=== PATIENT | female | born 1985 | race Asian ===

== ENCOUNTER → 2017-05-09 | Outpatient (CLI) | payer OTHER | LOC: COL.RAD 09:42 | DX: N91.2 Amenorrhea, unspecified (principal); R14.0 Abdominal distension (gaseous) ==

== ENCOUNTER 2023-08-21 10:00 | Outpatient (RCR) | payer BC ==
[2023-08-09 15:02] VITALS: BP 147/80; PULSE 112; TEMP 98
[2023-08-11 09:04] VITALS: BP 134/79; PULSE 108; TEMP 98.5
--- NOTE | 2023-08-11 09:42 | NUR ---
OB nurse in room to obtain FHT. Pt tolerated infusion without issue. IV DC'd, site wrapped with coban.
[2023-08-15 14:37] VITALS: BP 130/75; PULSE 110; TEMP 98.1
[2023-08-17 15:35] VITALS: BP 115/68; PULSE 113; TEMP 98
--- NOTE | 2023-08-17 16:07 | NUR ---
Pt tolerated venofer without issue. IV DC'd, site wrapped with coban. OB has been in and out of room to monitor monitor machine. Pt will discharge once they are completed.
[~2023-08-21] VITALS: Ht 157.5 cm; Wt 71.8 kg
[~2023-08-21 10:00] MED LIST: ASPIRIN 81M81 MG/TA2 PO; FORT1000TA PO; Iron Sucrose 200 MG in NS 100 ML Over 15 minutes IV ONE; NOVOLIN N100 U/ML SQ; NOVOLOG 100U100 U/M1 SQ; PRENATAL TABLET PO
[2023-08-21 10:18] VITALS: BP 118/72; PULSE 114; TEMP 98.3
[2023-08-21] MEDS ORDERED: Iron Sucrose 200 MG in NS 100 ML Over 15 minutes IV ONE (10:30)
== END 2023-08-21 10:56 | disposition home or self-care (01) ==
LOC: EUO 10:00
DX: D50.9 Iron deficiency anemia, unspecified (principal)
CPT/HCPCS: J1756

== ENCOUNTER 2023-10-09 11:16 | Inpatient (IN) | payer BC ==
[~2023-10-09] VITALS: Ht 157.5 cm; Wt 79.1 kg
[2023-10-09] VITALS (34 sets, daily range): BP systolic 128–186; BP diastolic 67–100; PULSE 94–117; TEMP 97.7–98.5
[~2023-10-09 11:16] MED LIST changes: -Iron Sucrose 200 MG in NS 100 ML Over 15 minutes IV ONE
--- NOTE | 2023-10-09 11:30 | NUR ---
PT AMBULATORY TO UNIT, SENT FROM OFFICE FOR BP CHECK AND LABS. PT CHANGED INTO GOWN, COMFORTABLE IN BED. REPORTS NO CTX, NO LOF, POSITIVE MOVEMENT.
[2023-10-09 12:36] LABS: PH 7.5 (5.0-8.5); URINE APPEARANCE CLEAR (CLEAR/HAZY); URINE BLOOD NEGATIVE (NEGATIVE); URINE COLOR YELLOW (YELLOW); URINE GLUCOSE NEGATIVE (NEGATIVE); URINE KETONE NEGATIVE (NEGATIVE); URINE NITRATE NEGATIVE (NEGATIVE); URINE PROTEIN(semi-quant) 2+ (NEGATIVE)
[2023-10-09 12:51] LABS: ALBUMIN 2.2 gm/dL (3.5-5.0); BILIRUBIN,TOTAL 0.4 mg/dL (0.2-1.2); CALCIUM 10.1 mg/dL (8.4-10.2); CREATININE, serum 0.6 mg/dL (0.57-1.11); TOTAL PROTEIN 6.3 gm/dL (6.2-8.1)
--- NOTE | 2023-10-09 13:00 | NUR ---
ROLES IN ROOM FOR SVE, PT UNABLE TO TOLERATE SVE. ULTRASOUND SHOWS HEAD DOWN. DICUSSED POC, PT AGREES TO CYTOTEC.
[2023-10-09 13:29] LABS: ANISOCYTOSIS 2+; BAND 1 % (0-10); HYPOCHROMIA 3+; LYMPHOCYTE 15 % (20.0-51.0); NEUTROPHILS 72 % (42.0-75.2); PLATELET ESTIMATE NORMAL (NORMAL)
[2023-10-09 13:32] LABS: HEMATOCRIT 35.7 % (37.0-47.0); MEAN CELL VOLUME 91 fl (80.0-100.0); MEAN CORPUSCULAR HEMOGLOBIN 28 pg (27-31); MEAN CORPUSCULAR HGB CONC 31 g/dl (33.0-37.0); MEAN PLATELET VOLUME 10.9 fl (7.4-10.4); PLATELET COUNT 255 K/mm3 (130-400); RED BLOOD COUNT 3.91 M/mm3 (4.10-5.30)
[2023-10-09] MEDS ORDERED: LR & Oxytocin 500 ML IV SCH (13:45)
[2023-10-09] MEDS ORDERED: Terbutaline 1 MG/ML 1 ML AMP SQ PRN (13:45)
[2023-10-09] MEDS ORDERED: NS 1,000 ML IV SCH (13:45)
[2023-10-09] MEDS ORDERED: Insulin Lispro (HumaLOG) SQ SCH ×2 (13:45→19:30)
[2023-10-09] MEDS ORDERED: miSOPROStol 25 MCG (1/4th of 100 MCG) TAB PO SCH (13:45)
[2023-10-09] MEDS ORDERED: Glucagon 1 MG VIAL IM PRN (14:00)
[2023-10-09] MEDS ORDERED: Dextrose 50% Water 25 GM/50 ML SYRINGE IV PRN (14:00)
[2023-10-09] MEDS ORDERED: Dextrose (Glucose) 15 GM (4 x 3.75 GM) Chewable TABLET PACK PO PRN (14:00)
[2023-10-09 16:14] LABS: COLLECTION METHOD CLEAN CATCH
--- NOTE | 2023-10-09 19:45 | NUR ---
1933: Break in heart tracing at this time. RN at bedside attempting to obtain heart tones. 1940: I remain at bedside adjusting US to obtain heart tones. Difficulty in obtaining heart tones due to movement.
--- NOTE | 2023-10-09 20:00 | NUR ---
RN continues to have difficulty tracing heart tones. I am at bedside adjusting US attempting to obtain. Frequent movement is palpated while I attempt to obtain heart tones. Pt denies feeling her ctx at this time.
--- NOTE | 2023-10-09 20:15 | NUR ---
Broken tracing at the beginning of this tracing. RN at bedside attempting to obtain heart tones. 2008: heart tones obtained and tracing well at this time. Pt comfortable and resting.
--- NOTE | 2023-10-09 21:00 | NUR ---
heart tones interrupted during this tracing due to pt moving and sitting on the side of the bed. Pt asks for assistance to the bathroom as well. Pt disconnected and assisted by spouse.
--- NOTE | 2023-10-09 21:00 | NUR ---
heart tones interrupted during this tracing due to pt sitting up on the side of the bed, Pt does call out asking to use the restroom. Pt disconnected from the monitor and helped to the bathroom by her spouse.
--- NOTE | 2023-10-09 21:30 | NUR ---
Interruption in tracing during this time due to movement. US adjusted and I remain at bedside monitoring maternal and status.
--- NOTE | 2023-10-09 22:00 | NUR ---
Interruptions in tracing during this time due to movement and maternal position. RN attempting to obtain heart rate.
--- NOTE | 2023-10-09 22:15 | NUR ---
RN unable to determine baseline, accels or decels during this tracing due to maternal position and movement. RN at bedside attempting to obtain heart tones. Pt reporting to this RN that she is coping well and comfortable at this time. Pt also assisted to the bathroom during this time.
--- NOTE | 2023-10-09 23:00 | NUR ---
Interruptions with the tracing due to maternal movement and position. RN at bedside readjusting US, attempting to obtain heart tones. Pt resting comfortably.
--- NOTE | 2023-10-09 23:15 | NUR ---
Break in heart tones toward the end of this tracing due to movement and maternal positioning. RN readjusts US and is able to obtain heart tones.
--- NOTE | 2023-10-09 23:45 | NUR ---
RN unable to determine decels due to intermittent breaks in tracing. Pt resting in bed, on her right side at this time. US adjusted to obtain heart tones.
[2023-10-10] VITALS (90 sets, daily range): BP systolic 102–189; BP diastolic 57–105; PULSE 89–115; TEMP 97.6–99.2
--- NOTE | 2023-10-10 01:30 | NUR ---
Interruption in tracing during this time due to maternal movement and positioning. RN unable to determine ctx pattern also due to maternal position and movement of the TOCO. Pt reports she is coping well at this time with labor. Monitors adjusted once pt is comfortable.
--- NOTE | 2023-10-10 01:45 | NUR ---
Pt sitting on side of the bed for comfort during ctx, spouse at bedside for support. RN at bedside attempting to obtain heart tones, difficulty tracing due to maternal position. Pt assisted to the bathroom and back to sitting on the side of the bed. Monitors readjusted.
--- NOTE | 2023-10-10 02:00 | NUR ---
Pt continues to sit on the side of the bed for comfort. Intermittent breaks in tracing due to maternal positioning and movement during her ctx.
--- NOTE | 2023-10-10 02:45 | NUR ---
Intermittent tracing at times due to maternal positioning and movement. Difficulty tracing ctx as well due to maternal movement.
--- NOTE | 2023-10-10 03:00 | NUR ---
Intermittent tracing continues due to pt sitting on the side of the bed, changing between sitting and standing during ctx. Pt reports to this RN that she is coping well at this time with her ctx and would like to wait on an epidural.
[2023-10-10] MEDS ORDERED: Ondansetron 4 MG/2 ML VIAL IV PRN ×2 (03:15→22:30)
[2023-10-10] MEDS ORDERED: Naloxone 0.4 MG/ML VIAL IV PRN ×2 (03:15→22:30)
[2023-10-10] MEDS ORDERED: ePHEDrine 50 MG/10 ML VIAL IV PRN (03:15)
[2023-10-10] MEDS ORDERED: diphenhydrAMINE 50 MG/ML 1 ML VIAL IV PRN (03:15)
[2023-10-10] MEDS ORDERED: diphenhydrAMINE 25 MG CAP PO PRN (03:15)
--- NOTE | 2023-10-10 03:15 | NUR ---
RN continues to have difficulty tracing heart tones due to maternal position and movement. Pt continues to sit on the side of the bed or stand next to the bed for comfort. Pt continues to cope well with ctx and denies the need for an epidural at this time. RN remains at bedside attempting to obtain heart tones.
--- NOTE | 2023-10-10 04:00 | NUR ---
RN unable to determine baseline, accels, or decels due to maternal position and movement. Pt reports that she feels that she is still coping well with her ctx and is wanting to keep going without an epidural. RN remains at bedside trying to obtain heart tones.
--- NOTE | 2023-10-10 04:15 | NUR ---
tracing continues to have moments of interrupted tracing due to maternal movement and position. RN at bedside attempting to maintain heart tones tracing.
--- NOTE | 2023-10-10 04:30 | NUR ---
RN continues to have difficulty tracing heart tones due to pt movement and positioning when having ctx. I am also unable to determine if accels or decels occur due to pt movement. I remain at bedside attempting to obtain heart tones.
--- NOTE | 2023-10-10 04:45 | NUR ---
Zoëue to have interruptions in tracing during this time frame due to pt movement and her rocking back and forth, standing when having ctx. I attempt to reposition the US to maintain heart tones.
--- NOTE | 2023-10-10 05:30 | NUR ---
Break in tracing during this time due to maternal movement. Pt reports being more uncomfortable at this time and would like to get her epidural. I inform pt that I will call Anesthesia and get everything ready.
--- NOTE | 2023-10-10 05:45 | NUR ---
RN unable to trace heart tones due to pt sitting upright for epidural placement. Pulse Oximetry on pt monitoring maternal heart rate. RN and spouse remain at bedside for support.
[2023-10-10] MEDS ORDERED: ROPivacaine PF 0.2% 200 ML IV ONE (05:48)
--- NOTE | 2023-10-10 06:00 | NUR ---
Pt repositioned back into bed, tilted to the left to aid in helping epidural set up. Pt tells this RN that she is comfortable. As I am monitoring well-being, I observe decel occur. Pt repositioned all the way onto her left side as I try and maintain heart rate monitoring. Another decel occurs with the next contraction and pt is then repositioned to her right side with good recovery. I obtain a cervical exam and pt is FT/10/High at this time. Pt positioned to her right side.
--- NOTE | 2023-10-10 06:20 | NUR ---
Assumed care of patient. Rests in bed,, alert. Spouse at bedside. heart rate down in the nintys, repositioned to left side. Denies any discomfort at this time.
--- NOTE | 2023-10-10 06:39 | NUR ---
Patient turned to left side. heart rate down in the nintys for 40 seconds, then back up to 150s. Pitocin off at this time as ordered by Dr. Sears. 0643 Ephedrine 10 mg iv given as ordered by Dr. Sears.
--- NOTE | 2023-10-10 07:25 | NUR ---
Rests in bed with eyes closed. Let patient know that this nurse was going to place a edgar catheter. States okay.
--- NOTE | 2023-10-10 08:00 | NUR ---
Pitocin restarted per Dr. Espinoza.
--- NOTE | 2023-10-10 08:30 | NUR ---
Dr. Espinoza here, visits with patient. Vag check done by Dr. Espinoza, states dilated to two, seventy five percent effaced, minus three. [address] Espinoza, small amount of clear fluid noted. Pad changed.
--- NOTE | 2023-10-10 08:45 | NUR ---
0850 heart rate down in the 80s-90s for 2 minutes, repositioned patient. Pitocin decreased to 4 minerva units. heart rate up to 150s.
--- NOTE | 2023-10-10 10:15 | NUR ---
heart rated down in the nintys for thirty seconds then back up to 170s. Patient repositioned in herminia position with help of Jaleesa rosales. heart rate back down in the 150s.
--- NOTE | 2023-10-10 12:00 | NUR ---
Blood sugar 108, denies any discomfort or pain at this time.
--- NOTE | 2023-10-10 12:30 | NUR ---
Sits up in bed, alert. Eating chicken broth.
--- NOTE | 2023-10-10 16:00 | NUR ---
Rests in bed, alert. Family here to visit. Denies any needs or discomfort at this time.
--- NOTE | 2023-10-10 16:00 | NUR ---
heart rated dowm in the 70s-80s for 90 seconds, then back up to 120s. Pitocin decreased to 8 minerva units iv. Patient repositioned.
--- NOTE | 2023-10-10 16:00 | NUR ---
Rests in bed, alert. Blood sugar 140s.
--- NOTE | 2023-10-10 16:22 | NUR ---
Rests in bed, alert. Decel down in the 70s for 60 seconds, pitocin turned off.
--- NOTE | 2023-10-10 16:40 | NUR ---
heart tones down in the 90s. Repositioned to left side.
--- NOTE | 2023-10-10 17:00 | NUR ---
Decel noted in the eightys for 40 seconds, back up to the 130s.
--- NOTE | 2023-10-10 18:15 | NUR ---
Rests in bed, alert. Report given to Chelsey wilcox
--- NOTE | 2023-10-10 18:30 | NUR ---
DR HOBSON HERE TO DO SVE, NO CHANGE IN CERVIX, INFORMED PT AND HER THE OPTION FOR C/S NOW OR RESTART PITOCIN AND SEE HOW THE BABY TOLERATES IT AND IF HER CERVIX WITH PROGRESS. PT AND GIVEN TO CHANCE TO DISCUSS THEIR OPTIONS. 1839 PT DECIDED TO HAVE THE PITOCIN RESTARTED AND SEE HOW IT GOES. DR HOBSON INFORMED OF PT'S DECISION 1844 PITOCIN RESTARTED AT [address] CHAUDHRY.
--- NOTE | 2023-10-10 19:46 | NUR ---
1945- FHR LATE DECEL NOTED FOR 120 SECS. PITOCIN OFF, DR HOBSON NOTIFIED. HE CAME INTO DISCUSS C/S WITH PT AND HER . PT AGREED TO C/S. STAFF NOTIFIED. 1949- LOWER ABD CLIPPED. F/C IS IN PLACE AND PATENT. FOB GIVEN OR ATTIRE TO PUT ON. 2004- C/S OM HOLD DUE TO OTHER PT'S FHR DECEL. WILL CONTINUE TO MONITOR.
[2023-10-10] MEDS ORDERED: Azithromycin 500 MG in NS 250 ML IV ONE (20:00)
[2023-10-10] MEDS ORDERED: LR 1,000 ML IV SCH (20:00)
[2023-10-10] MEDS ORDERED: Oxytocin 10 UNITS/ML VIAL ONE (20:19)
[2023-10-10] MEDS ORDERED: NS 20 ML IV ONE (20:19)
[2023-10-10] MEDS ORDERED: Ondansetron 4 MG/2 ML VIAL ONE (20:19)
[2023-10-10] MEDS ORDERED: Ketorolac 60 MG/2 ML VIAL IM ONE (20:20)
[2023-10-10] MEDS ORDERED: Phenylephrine 10 MG/ML VIAL ONE (20:20)
[2023-10-10] MEDS ORDERED: Tranexamic Acid 1,000 MG/10 ML VIAL ONE (20:40)
[2023-10-10] MEDS ORDERED: Meperidine 50 MG/ML 1 ML VIAL ONE (20:41)
[2023-10-10] MEDS ORDERED: traZODone 50 MG TAB PO PRN (21:00)
[2023-10-10] MEDS ORDERED: Loratadine 10 MG TAB PO PRN (21:30)
[2023-10-10] MEDS ORDERED: Magnes Hydrox (MOM) 80 MG/ML 30 ML CUP PO PRN (21:30)
[2023-10-10] MEDS ORDERED: oxyCODONE 5 MG TAB PO PRN (22:30)
[2023-10-10] MEDS ORDERED: Morphine 4 MG/ML VIAL IV PRN (22:30)
[2023-10-10] MEDS ORDERED: LR 1,000 ML IV PRN (22:30)
[2023-10-10] MEDS ORDERED: Acetaminophen 500 MG TAB PO SCH (22:30)
[2023-10-10] MEDS ORDERED: Measles/Mumps/Rubella Virus Vaccine Live w Diluent 0.5 ML VIAL SQ SCH (22:30)
[2023-10-10] MEDS ORDERED: Glucagon 1 MG VIAL IM PRN (23:45)
[2023-10-10] MEDS ORDERED: Dextrose (Glucose) 15 GM (4 x 3.75 GM) Chewable TABLET PACK PO PRN (23:45)
[2023-10-10] MEDS ORDERED: Dextrose 50% Water 25 GM/50 ML SYRINGE IV PRN (23:45)
[2023-10-11] VITALS (9 sets, daily range): BP systolic 123–167; BP diastolic 76–86; PULSE 80–90; TEMP 97.9–98.3
[2023-10-11] MEDS ORDERED: Ibuprofen 600 MG TAB PO SCH (03:19)
--- NOTE | 2023-10-11 04:44 | NUR ---
PT'S LEGS ARE STILL NUMB FROM THE EPIDURAL. SEARS CATH IS STILL IN PLACE. SEARS AND PERICARE DONE. PADS CHANGED. PT STATES HER INCISION IS HURTING. HER NEXT PAIN MED IS DUE AT 0500. OR i CAN GIVE HER THE IV MORPHINE. PT REQUESTS TO GT THE OXYCONE. MOTRIN GIVEN ORDERED.
[2023-10-11 04:59] LABS: BASO % 0.2 % (0.0-2.0); EOS % 0.2 % (0.0-4.0); GRAN # 9.5 K/mm3 (1.4-6.5); GRAN % 78.3 % (42.2-75.2); LYMPH # 1.6 K/mm3 (1.2-3.4); MEAN CELL VOLUME 92 fl (80.0-100.0); MEAN CORPUSCULAR HGB CONC 31 g/dl (33.0-37.0); MONO % 7.8 % (1.7-9.3); PLATELET COUNT 211 K/mm3 (130-400); RED BLOOD COUNT 3.19 M/mm3 (4.10-5.30)
[2023-10-11 05:15] LABS: HEMATOCRIT 29.4 % (37.0-47.0); MEAN CORPUSCULAR HEMOGLOBIN 28 pg (27-31)
--- NOTE | 2023-10-11 06:03 | NUR ---
PT STATES THE ONE OXYCODONE IS NOT BRINGING THE PAIN DONE VERY MUCH AND SHE HAS BEEN REQUESTING A SECOND TAB. DR HOBSON HERE IN HOUSE, NOTIFIED AND ORDERS CHANGED TO OXYCODONE 2 TABS EVERY 4 HOURS.
[2023-10-11] MEDS ORDERED: oxyCODONE 5 MG TAB PO PRN (06:15)
[2023-10-11] MEDS ORDERED: Insulin Regular Human (NovoLIN R/HumuLIN R) SQ SCH (07:30)
[2023-10-11] MEDS ORDERED: Sennosides/Docusate 8.6-50 MG TAB PO SCH (08:00)
[2023-10-11] MEDS ORDERED: Prenatal Vitamins/Iron/FA TAB PO SCH (09:00)
[2023-10-11] MEDS ORDERED: Insulin Glargine-ygfn (Lantus) SQ SCH (09:00)
--- NOTE | 2023-10-11 10:08 | NUR ---
Initial visit; Parents thanked Director Card for offering congratulations and God's blessings for the of their daughter. Director Card thanked family for choosing [facility].
[2023-10-11] MEDS ORDERED: metFORMIN XR 500 MG TAB PO SCH (17:00)
[2023-10-12] MEDS ORDERED: Ferrous Sulfate 325 MG TAB PO SCH (08:00)
[2023-10-12 09:30] VITALS: BP 103/62; PULSE 98; TEMP 98.2
[2023-10-12 17:20] VITALS: BP 147/82; PULSE 93; TEMP 98.1
[2023-10-12 21:08] VITALS: BP 160/81; PULSE 84; TEMP 98.2
[2023-10-12] MEDS ORDERED: Ibuprofen 600 MG TAB PO SCH (23:15)
[2023-10-12] MEDS ORDERED: Acetaminophen 500 MG TAB PO SCH (23:15)
[2023-10-13 00:30] VITALS: BP 140/81; PULSE 89; TEMP 98
[2023-10-13 04:00] VITALS: BP 138/70; PULSE 81; TEMP 98.1
[2023-10-13 07:00] VITALS: BP 133/65; PULSE 79; TEMP 98.1
--- NOTE | 2023-10-13 07:00 | NUR ---
Rests in bed, alert. Blood sugar obtained fasting 81. Denies any discomfort at this time.
[2023-10-13 09:30] VITALS: BP 141/77; PULSE 91
[2023-10-13] MEDS ORDERED: NORMODYNE200 MG PO (09:43)
[2023-10-13] MEDS ORDERED: IBU600 MG PO (09:43)
[2023-10-13] MEDS ORDERED: FERROUS SU325 MG/TAB PO (09:43)
[2023-10-13] MEDS ORDERED: ROXICODONE 55 MG/TAB PO (09:43)
[2023-10-13] MEDS ORDERED: TYLENOL 500MG500 MG PO (09:44)
[2023-10-13] MEDS ORDERED: INSULIN GL100 UNIT/1 SQ (09:45)
[2023-10-13] MEDS ORDERED: INSULIN R (N100 U/ML SQ (09:45)
== END 2023-10-13 12:00 | disposition home or self-care (01) | DRG 787 ==
LOC: LDRO 11:16 → LDR 13:44 → OB 10-11 04:03
PROVIDERS: Obstetrics & Gynecology; ADMIT Student in an Organized Health Care Education/Training Program
PROC: 10D00Z1 Extraction of Products of Conception, Low, Open Approach (ICD-10-PCS; principal; 2023-10-09)
DX: O24.12 Pre-existing type 2 diabetes mellitus, in childbirth (principal); O72.1 Other immediate postpartum hemorrhage; O14.94 Unspecified pre-eclampsia, complicating childbirth; Z3A.38 38 weeks gestation of pregnancy; Z37.0 Single live birth
CPT/HCPCS: J0456; J0665; J0690; J1815; J1885; J1920; J2175; J2371; J2405; J2590; J2795; J7030; J7050